=== PATIENT | female | born 1975 | race Caucasian/White ===

== ENCOUNTER 2016-12-28 20:54 | Emergency (ER) | payer OTHER, MEDICAID ==
[~2016-12-28] VITALS: Ht 154.9 cm; Wt 104.5 kg
[~2016-12-28 20:54] MED LIST: ALPRAZOLAM0.5 MG PO; BUSP15 PO; IND10 PO; LAM100 PO; OMEP20TA86 PO; SMV40T PO; VNL75T PO; allegra PO
[2016-12-28 21:14] VITALS: BP 131/82; PULSE 64; RESP 18; O2SAT 100
--- NOTE | 2016-12-28 21:34 | ED.REPORT ---
HPI-General Illness Date of Service Dec 28, 2016 ED Provider: Antoine Rodríguez MD Pt is a 41 year old female with a history of GERD, knee arthritis, gestational DM, and HTN who presents to the ED complaining of right ankle pain onset today. She c/o associated right ankle swelling, nausea secondary to the pain. She denies vision change, head injury, tongue injury, and any other injury. Pt reports that she was carrying her daughter when she tripped on the curb and rolled onto her right ankle. The pt rates the pain as a 4/10, sharp, and reports that her pain is exacerbated with weight-bearing. No other complaints at this time. Nursing Notes Stated Complaint: ROLLED ANKLES/TWISTED KNEE Chief Complaint: Extremity Trauma Nursing Notes Reviewed: Yes Allergies: Coded Allergies: Sulfa (Sulfonamide Antibiotics) (Verified Allergy, Unknown, 12/28/16) hydrocodone (Verified Allergy, Unknown, 12/28/16) ibuprofen (Verified Allergy, Unknown, 12/28/16) Scheduled Buspirone-Expunged Drug, Do Not Renew! (Buspirone-Expunged Drug, Do Not Renew!) 15 Mg Tablet 10 MG PO BID Omeprazole-Expunged Drug, Do Not Renew! (Omeprazole-Expunged Drug, Do Not Renew! ) 20 Mg Tablet.dr 20 MG PO DAILY Propranolol-Expunged Drug, Do Not Renew! (Propranolol-Expunged Drug, Do Not Renew!) 10 Mg Tab 10 MG PO BID Simvastatin-Expunged Drug, Choose New Med! (Simvastatin-Expunged Drug, Choose New Med!) 40 Mg Tablet 40 MG PO DAILY Venlafaxine-Expunged Drug, Do Not Renew! (Effexor-Expunged Drug, Do Not Renew!) 75 Mg Tablet 150 MG PO DAILY lamoTRIgine-Expunged Drug, Do Not Renew! (Lamictal-Expunged Drug, Do Not Renew! ) 100 Mg Tablet 500 MG PO DAILY Scheduled PRN ([barbara]) 1 TAB PO DAILY PRN PRN Alprazolam-Expunged Drug, Do Not Renew! (Alprazolam-Expunged Drug, Do Not Renew! ) 0.5 Mg Tablet 0.5 MG PO DAILY PRN PRN General Time Seen by MD: 21:34 Chief Complaint Other (Right ankle pain) Hx Obtained From: Patient Arrived By: Walk-in Sudden in Onset?: No Onset Occurred: Just prior to arrival Symptom Duration: Since onset Location: : Ankle right Quality: Painful Severity: Current: Pain level 4 out of 10 Severity: Maximum: Pain level 4 out of 10 Recent Healthcare: No recent doctor visit, No recent hospitalization Similar Sx Previous: No Past Medical History Past Medical History Pneumonia Hiatal hernia Anxiety Shingles Reports: GERD, Hypertension Reports: Depression Past Surgical History Reports: Appendectomy Smoking History Unknown if Ever Smoker Social History Alcohol Use: Denies alcohol use Drug Use: Denies drug use Ambulatory Status Independent Review of Systems Denies head injury Denies tongue injury Denies other injury Full Review of Systems Constitutional: Denies: Fever Eyes: Denies: Diplopia Ears / Nose / Throat: Denies: Sore throat Respiratory: Denies: Shortness of breath Cardiovascular: Denies: Chest pain GI: Reports: Nausea, Denies: Abdominal pain, Vomiting Musculoskeletal: Reports: Extremity pain (right ankle pain), Extremity swelling (right ankle swelling) Hematologic: Denies Bleeding Skin: Denies Rash Neurologic: Denies: Vision change Complete sys rev & neg: except as marked. Physical Exam Nursing note and vitals reviewed. Constitutional: Well-developed, well-nourished. Not diaphoretic. Head: Normocephalic and atraumatic. Mouth/Throat: Oropharynx is clear and moist. No oropharyngeal exudate. Eyes: EOM are normal. Pupils are equal, round, and reactive to light. Neck: Supple, no tracheal deviation. Cardiovascular: Normal rate, regular rhythm. Equal and intact distal pulses throughout. Pulmonary/Chest: Effort normal and breath sounds normal. No respiratory distress. Abdominal: Soft. No distension. There is no tenderness, rebound, or guarding. Bowel sounds present. Musculoskeletal: Left extremity: No bony tenderness around the left ankle or left foot including left midfoot. Left knee non-tender to palpation. Right extremity: Good pulses. Moderate swelling to lateral aspect of right ankle. No proximal 1st and 2nd metatarsal tenderness. No bony 5th metatarsal tenderness. Diffuse tenderness above right lateral malleolus. No proximal fibular tenderness. No bony tenderness in right knee. Neurological: AOx3. Grossly nonfocal exam. Strength and sensation intact and equal to bilateral upper and lower extremities. Skin: Warm and dry, no rashes or pallor appreciated. Psychiatric: Appropriate mood and affect. Behavior appears normal. Vital Signs Vital Signs Date Time Temp Pulse Resp B/P Pulse Ox O2 Delivery O2 Flow Rate FiO2 12/28/16 23:28 36.9 66 18 128/80 100 Room Air 12/28/16 21:14 36.9 64 18 131/82 100 Room Air Initial VS: Reviewed Interpretation & Diagnostics X-Ray Interpretation Xray Interpretation: IMPRESSION: No trauma found. Dictated by: Vinod Marin M.D. on 12/28/2016 at 22:07 Study Performed: Minimum 3 views X-Ray Ordered: Ankle right Interpretation / Wet Read by: Interpret - Radiologist Re-Eval/Medical Decision Med Decision/Clinical Course In summary, 41-year-old female presenting to the ED for evaluation of right ankle pain after rolling it earlier today. She did not sustain any other injuries per her report, did not hit her head, did not lose consciousness, has not had any nausea or vomiting or anything else that would prompt imaging of her head at this time. X-rays negative for fracture. No proximal first and second metatarsal tenderness that would suggest a Lisfranc injury, no lateral fifth metatarsal tenderness. Given above, reasonable to discharge home with careful return precautions, PCP follow-up. I will provide her with a air splint here in the ED. Patient agreeable to the plan as stated, no further questions. Source of Hx: Old records Time of Eval: 22:46 Re-Evaluation/Progress Note: Informed pt of plan for discharge. Pt understands and agrees with plan for discharge. F/U instructions and RTER warnings given. All questions addressed. Counseled Regarding: Diagnosis, Need for follow-up, When/why to return to ED Discharge & Departure Primary Impression: Ankle sprain Encounter type: initial encounter Involved ligament of ankle: unspecified ligament Laterality: right Qualified Code: S93.401A - Sprain of unspecified ligament of right ankle, initial encounter Disposition: Home Discharge Condition All VS Reviewed: Yes Condition: Stable Patient Instructions: Ankle Sprain (GEN) Additional Instructions: Thank you for allowing us to be a part of your care today. At this time, it appears that you have sustained a sprain of your right ankle. The x-ray does not show any signs of fracture. Please see the attached instructions for information on how to best care for your ankle in the days ahead. He should rest, keep your right leg elevated, apply ice, and you have been given a stirrup splint for comfort. Please follow-up with your regular doctor in the next 1-2 days. You can use Aleve for your pain and to reduce inflammation as tolerated, as you mentioned that you have used this in the past without difficulty. Return to the ED if you develop numbness or tingling in her toes, any worsening pain, are unable to move your toes, or if you have anything else that concerns you. Referrals: Mary Galdamez PA-C Attestation Portions of this note were transcribed by Tomasa Bean. I, Dr. Rodríguez personally performed the history, physical exam and medical decision-making; I reviewed and confirmed the accuracy of the information in the transcribed note. Signed by: Miguel Tyson, 12/28/16. copies to: Mary Galdamez PA-C, William B MD Dec 28, 2016 21:34 Tomasa Shabazz Dec 28, 2016 21:41
--- NOTE | 2016-12-28 22:09 | DRSVH ---
PROCEDURE: X-RAY RIGHT ANKLE, MINIMUM THREE VIEWS ([id number]) INDICATIONS: twisted ankle TECHNIQUE: 3 views of the ankle were acquired. COMPARISON: None. FINDINGS: Bones: No fractures or dislocations. Ankle mortise is normally aligned. No suspicious bony lesions . Soft tissues: No tibiotalar joint effusion. Achilles tendon appears normal. IMPRESSION: No trauma found. Dictated by: Vinod Marin M.D. on 12/28/2016 at 22:07 Approved by: Vinod Marin M.D. on 12/28/2016 at 22:07
[2016-12-28 23:28] VITALS: BP 128/80; PULSE 66; RESP 18; O2SAT 100
== END 2016-12-28 23:40 | disposition home or self-care (01) ==
LOC: SED 20:54
DX: S93.401A Sprain of unspecified ligament of right ankle, initial encounter (principal); X50.9XXA Other and unspecified overexertion or strenuous movements or postures, initial encounter; Y93.9 Activity, unspecified; Y92.89 Other specified places as the place of occurrence of the external cause; Y99.9 Unspecified external cause status; I10 Essential (primary) hypertension; K21.9 Gastro-esophageal reflux disease without esophagitis; Z88.2 Allergy status to sulfonamides; Z88.5 Allergy status to narcotic agent; Z88.6 Allergy status to analgesic agent